=== PATIENT | female | born 2000 | race Caucasian/White ===

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

== ENCOUNTER 2020-12-31 13:50 | Emergency (ER) | payer OTHER ==
[2020-12-31 14:07] VITALS: BP 104/71; PULSE 75; TEMP 98.4; BMI 21.9
[2020-12-31] MEDS ORDERED: SODIUM CHLORIDE 0.9% 500 ML INFUS.BAG IV ONE (14:38)
[2020-12-31 15:38] LABS: BASO % 0.8 % (0-2.0); EOS % 0.6 % (0-4.5); HEMATOCRIT 41.9 % (32.4-45.2); HEMOGLOBIN 14.5 GM/dL (10.7-15.3); LYMPH % 24.8 % (8-40); MCH 30.1 pg (25.7-33.7); MCHC 34.5 g/dl (32.0-36.0); MEAN CELL VOLUME 87.4 fl (80-96); MEAN PLT VOLUME 7.6 fl (7.5-11.1); NEUT % 65.8 % (42.8-82.8); PLATELET COUNT 284 10^3/uL (134-434); RDW 11.9 % (11.6-15.6); WHITE BLOOD COUNT 6.8 K/mm3 (4.0-10.0)
[2020-12-31 16:00] LABS: CALCIUM 9.2 mg/dL (8.5-10.1)
[2020-12-31 16:01] LABS: ALBUMIN 4.1 g/dl (3.4-5.0); BLOOD UREA NITROGEN 6.4 mg/dL (7-18)
[2020-12-31 16:04] LABS: URINE APPEARANCE TURBID; URINE BILIRUBIN NEGATIVE (NEGATIVE); URINE COLOR YELLOW; URINE GLUCOSE (UA) NEGATIVE (NEGATIVE); URINE KETONE TRACE (NEGATIVE); URINE LEUK ESTERASE NEGATIVE (NEGATIVE); URINE NITRITE NEGATIVE (NEGATIVE); URINE PROTEIN NEGATIVE (NEGATIVE)
[2020-12-31 16:04] LABS: CREATININE 0.6 mg/dL (0.55-1.3)
[2020-12-31 16:06] LABS: BILIRUBIN,TOTAL 0.8 mg/dL (0.2-1); TOT PROT 7.8 g/dl (6.4-8.2)
== END 2020-12-31 18:20 | disposition home or self-care (01) ==
LOC: JER 13:50
DX: O26.891 Other specified pregnancy related conditions, first trimester (principal); R10.9 Unspecified abdominal pain; Z3A.01 Less than 8 weeks gestation of pregnancy
CPT/HCPCS: 36415; 76817-TC; 80053; 81003; 84702; 85025; 86850; 86900; 86901; 87086; 87491; 87591; 99284-25

== ENCOUNTER 2021-01-19 11:00 | Emergency (ER) | payer OTHER ==
[2021-01-19 11:08] VITALS: BP 110/63; PULSE 100; TEMP 98; BMI 22.1
[2021-01-19] MEDS ORDERED: DEXAMETHASONE LIQUID 0.5 MG/5 ML PO ONE (12:12)
[2021-01-19] MEDS ORDERED: diphenhydrAMINE HCL 25 MG CAPSULE (FP) PO ONE ×2 (12:12→12:13)
[2021-01-19] MEDS ORDERED: DEXAMETHASONE SOD PHOSPHATE 10 MG/1 ML VIAL ONE (12:13)
== END 2021-01-19 12:19 | disposition home or self-care (01) ==
LOC: JER 11:00 → JERFT 11:00
DX: T78.40XA Allergy, unspecified, initial encounter (principal)
CPT/HCPCS: 99283-25

== ENCOUNTER 2021-01-20 16:08 | Emergency (ER) | payer OTHER ==
[2021-01-20 16:38] VITALS: BP 105/69; PULSE 95; TEMP 98.2; BMI 22.1
[2021-01-20] MEDS ORDERED: hydrOXYzine HCL 100 MG/2 ML VIAL IM ONE ×2 (18:22→18:23)
[2021-01-20] MEDS ORDERED: LORATADINE 10 MG TABLET PO ONE (18:22)
[2021-01-20] MEDS ORDERED: LORATADINE 10 MG TABLET ONE (19:00)
[2021-01-20] MEDS ORDERED: hydrOXYzine HCL 50 MG/ML VIAL IM ONE (19:00)
== END 2021-01-20 19:49 | disposition home or self-care (01) ==
LOC: JERFT 16:08
PROC: 3E023NZ Introduction of Analgesics, Hypnotics, Sedatives into Muscle, Percutaneous Approach (ICD-10-PCS; principal; 2021-01-20)
DX: L50.0 Allergic urticaria (principal); T78.40XA Allergy, unspecified, initial encounter
CPT/HCPCS: 96372; 99284-25